=== PATIENT | female | born 1970 | race Caucasian/White ===

== ENCOUNTER 2016-08-13 11:36 | Emergency (ER) | payer OTHER ==
[~2016-08-13] VITALS: Ht 147.3 cm; Wt 72.7 kg
[2016-08-13] MEDS ORDERED: OxyCODONE HCL/ACETAMINOPHEN 5-325 MG TABLET PO ONE (13:15)
[2016-08-13] MEDS ORDERED: ONDANSETRON HCL 4 MG TABLET PO ONE (13:15)
[2016-08-13] MEDS ORDERED: KETOROLAC TROMETHAMINE 60 MG/2 ML VIAL IM ONE (13:15)
[2016-08-13 13:56] VITALS: BP 136/79
== END 2016-08-13 14:21 | disposition home or self-care (01) ==
LOC: EMS 11:40
DX: S39.012A Strain of muscle, fascia and tendon of lower back, initial encounter (principal); M54.30 Sciatica, unspecified side; Z88.6 Allergy status to analgesic agent; X58.XXXA Exposure to other specified factors, initial encounter; Y93.89 Activity, other specified; Y92.89 Other specified places as the place of occurrence of the external cause; Y99.8 Other external cause status
CPT/HCPCS: 96372; 99283; J1885; Q0162